=== PATIENT | female | born 2005 | race Caucasian/White ===

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

== ENCOUNTER 2025-07-11 17:13 | Emergency (ER) | payer BC, OTHER ==
[2025-07-11] MEDS: methylPREDNISolone Sodium Succinate 125 MG/2 ML SDV IVPUSH ONE (18:44)
[2025-07-11 18:53] LABS: BASOPHILS ABSOLUTE AUTO 0.1 K/mm3 (0.0-0.3); BASOPHILS PERCENT AUTO 0.6 % (0.0-1.0); EOSINOPHILS ABSOLUTE AUTO 0.4 K/mm3 (0.0-0.7); EOSINOPHILS PERCENT AUTO 3.4 % (0.0-5.0); IMMATURE GRAN ABSOLUTE AUTO 0.03 K/mm3 (0.00-0.05); IMMATURE GRAN PERCENT AUTO 0.3 % (0.0-0.4); LYMPHOCYTES ABSOLUTE AUTO 1.7 K/mm3 (2.0-8.8); LYMPHOCYTES PERCENT AUTO 16.7 % (50.0-65.0); MEAN PLATELET VOLUME 10.3 fl (9.4-12.3); MONOCYTES ABSOLUTE AUTO 0.8 K/mm3 (0.1-1.4); MONOCYTES PERCENT AUTO 7.4 % (2.0-10.0); NEUTROPHILS ABSOLUTE AUTO 7.5 K/mm3 (1.5-8.5); NEUTROPHILS PERCENT AUTO 71.6 % (35.0-45.0); NRBC ABSOLUTE 0.00 (0.00-0.03); NRBC PERCENT 0.0 % (0.0-0.2); PLATELET COUNT,PLT 259 K/mm3 (150-400); RED BLOOD CELL COUNT 5.84 M/mm3 (4.10-5.30); WHITE BLOOD CELL COUNT,WBC 10.44 K/mm3 (4.5-13.5)
[2025-07-11 19:12] LABS: A/G RATIO 1.0 (1-2); ALANINE AMINOTRANSFERASE,ALT 19.0 U/L (14-59); ASPARTATE AMNIOTRANSFERASE,AST 14.0 U/L (15-37); BILIRUBIN TOTAL 0.7 mg/dL (0.2-1.0); BLOOD UREA NITROGEN,BUN 8.0 mg/dL (7-18); CARBON DIOXIDE,CO2 27.0 mEq/L (21-32); CHLORIDE,CL 104.0 mEq/L (98-107); CREATININE 1.1 mg/dL (0.55-1.02); EST CRCL DRUG DOSING (CG) 77.01 mL/min; ESTIMATED GFR 74.0 mL/min (>60); GLUCOSE RANDOM 92.0 mg/dL (70-99); POTASSIUM,K 4.1 mEq/L (3.5-5.1); PROTEIN TOTAL,TP 8.5 g/dl (6.4-8.2); SODIUM,NA 142.0 mEq/L (136-145)
[2025-07-11 21:11] LABS: APPEARANCE,URINE CLEAR (Clear); GLUCOSE,URINE NEGATIVE (Negative); OCCULT BLOOD,URINE TRACE-LYSED (Negative)
[2025-07-11] MEDS ORDERED: Sodium Chloride 0.9% 10 ML Syringe FLUSH PRN (22:32)
[2025-07-11] MEDS: Sodium Chloride 0.9% 10 ML Syringe FLUSH PRN (22:52)
[2025-07-11] MEDS: Iopamidol 755 Mg/ML 100 ML Bottle IVPUSH ONE (22:53)
== END 2025-07-12 00:50 | disposition home or self-care (01) ==
LOC: JD.ED 17:13
DX: J45.901 Unspecified asthma with (acute) exacerbation (principal); E86.0 Dehydration; Z86.16 Personal history of COVID-19; Z91.048 Other nonmedicinal substance allergy status; Z79.899 Other long term (current) drug therapy
CPT/HCPCS: 36415; 71045; 71045-26; 71275; 71275-26; 80053; 81001; 83690; 83735; 84484; 84703; 85025; 86140; 87428-QW; 93005; 93010; 94640; 96361; 96365; 96375; 99284; 99285-25; A9270-GY; J2919; J3475; J7030; Q9967

== ENCOUNTER 2025-07-12 10:41 | Inpatient (IN) | payer BC ==
[2025-07-12] MEDS: Albuterol 0.083% 2.5 MG/3 ML Neb Soln NEB STA (11:06)
[2025-07-12] MEDS: LORazepam 2 MG/ML SDV IVPUSH STA (11:29)
[2025-07-12] MEDS: methylPREDNISolone Sodium Succinate 125 MG/2 ML SDV IVPUSH STA (11:29)
[2025-07-12] MEDS: Ondansetron 4 MG/2 ML SDV IVPUSH ONE (11:29)
[2025-07-12] MEDS: Magnesium Sulf/Wat 4 GM/50 mL 4 GM in Premix Bag 1 BAG IV ONE (11:30)
[2025-07-12 12:21] LABS: BUPRENORPHINE SCREEN,URINE NEGATIVE (CUTOFF=10); METHADONE SCREEN, URINE NEGATIVE (CUTOFF=200); METHAMPHETAMINES SCREEN, URINE NEGATIVE (CUTOFF=500); OXYCODONE SCREEN,URINE NEGATIVE (CUT0FF=100); THC SCREEN,URINE 20 NG/ML NEGATIVE (CUTOFF=50)
[2025-07-12 12:24] LABS: AMPHETAMINES SCREEN, URINE NEGATIVE (CUTOFF=500)
[2025-07-12 12:30] LABS: BASOPHILS ABSOLUTE AUTO 0.0 K/mm3 (0.0-0.3); BASOPHILS PERCENT AUTO 0.1 % (0.0-1.0); EOSINOPHILS ABSOLUTE AUTO 0.0 K/mm3 (0.0-0.7); EOSINOPHILS PERCENT AUTO 0.1 % (0.0-5.0); IMMATURE GRAN ABSOLUTE AUTO 0.05 K/mm3 (0.00-0.05); IMMATURE GRAN PERCENT AUTO 0.4 % (0.0-0.4); LYMPHOCYTES ABSOLUTE AUTO 1.3 K/mm3 (2.0-8.8); LYMPHOCYTES PERCENT AUTO 9.7 % (50.0-65.0); MEAN PLATELET VOLUME 10.1 fl (9.4-12.3); MONOCYTES ABSOLUTE AUTO 1.2 K/mm3 (0.1-1.4); MONOCYTES PERCENT AUTO 9.1 % (2.0-10.0); NEUTROPHILS ABSOLUTE AUTO 10.9 K/mm3 (1.5-8.5); NEUTROPHILS PERCENT AUTO 80.6 % (35.0-45.0); NRBC ABSOLUTE 0.00 (0.00-0.03); NRBC PERCENT 0.0 % (0.0-0.2); PLATELET COUNT,PLT 222 K/mm3 (150-400); RED BLOOD CELL COUNT 4.77 M/mm3 (4.10-5.30); WHITE BLOOD CELL COUNT,WBC 13.56 K/mm3 (4.5-13.5)
[2025-07-12 12:52] LABS: A/G RATIO 1.1 (1-2); ALANINE AMINOTRANSFERASE,ALT 17 U/L (14-59); ASPARTATE AMNIOTRANSFERASE,AST 12 U/L (15-37); BILIRUBIN TOTAL 0.3 mg/dL (0.2-1.0); BLOOD UREA NITROGEN,BUN 8 mg/dL (7-18); CARBON DIOXIDE,CO2 23 mEq/L (21-32); CHLORIDE,CL 109 mEq/L (98-107); CREATINE KINASE,CK 69 U/L (26-192); CREATININE 0.8 mg/dL (0.55-1.02); ESTIMATED GFR 109 mL/min (>60); GLUCOSE RANDOM 121 mg/dL (70-99); POTASSIUM,K 3.0 mEq/L (3.5-5.1); PROTEIN TOTAL,TP 7.2 g/dl (6.4-8.2); SODIUM,NA 143 mEq/L (136-145)
[2025-07-12] MEDS: Potassium Chloride 20 MEQ Tab.ER PO ONE (20:37)
[2025-07-12 20:48] LABS: CORONAVIRUS COVID-19 NAA NEGATIVE (NEGATIVE); INFLUENZA A NAA NEGATIVE (NEGATIVE); RESPIRATORY SYNCYTIAL VIR NAA NEGATIVE (NEGATIVE)
[2025-07-12] MEDS: cefTRIAXone 1 GM in Water For Injection, Sterile 10 ML IVPUSH SCH (22:12)
[2025-07-12] MEDS: Ondansetron 4 MG/2 ML SDV IVPUSH PRN (22:49)
[2025-07-13 04:47] LABS: BASOPHILS ABSOLUTE AUTO 0.0 K/mm3 (0.0-0.3); BASOPHILS PERCENT AUTO 0.1 % (0.0-1.0); EOSINOPHILS ABSOLUTE AUTO 0.0 K/mm3 (0.0-0.7); EOSINOPHILS PERCENT AUTO 0.0 % (0.0-5.0); IMMATURE GRAN ABSOLUTE AUTO 0.10 K/mm3 (0.00-0.05); IMMATURE GRAN PERCENT AUTO 0.7 % (0.0-0.4); LYMPHOCYTES ABSOLUTE AUTO 1.3 K/mm3 (2.0-8.8); LYMPHOCYTES PERCENT AUTO 8.4 % (50.0-65.0); MEAN PLATELET VOLUME 10.6 fl (9.4-12.3); MONOCYTES ABSOLUTE AUTO 1.3 K/mm3 (0.1-1.4); MONOCYTES PERCENT AUTO 8.4 % (2.0-10.0); NEUTROPHILS ABSOLUTE AUTO 12.3 K/mm3 (1.5-8.5); NEUTROPHILS PERCENT AUTO 82.4 % (35.0-45.0); NRBC ABSOLUTE 0.00 (0.00-0.03); NRBC PERCENT 0.0 % (0.0-0.2); PLATELET COUNT,PLT 238 K/mm3 (150-400); RED BLOOD CELL COUNT 4.69 M/mm3 (4.10-5.30); WHITE BLOOD CELL COUNT,WBC 14.96 K/mm3 (4.5-13.5)
[2025-07-13 05:13] LABS: BLOOD UREA NITROGEN,BUN 8.0 mg/dL (7-18); CARBON DIOXIDE,CO2 26.0 mEq/L (21-32); CHLORIDE,CL 110.0 mEq/L (98-107); CREATININE 0.7 mg/dL (0.55-1.02); EST CRCL DRUG DOSING (CG) 121.01 mL/min; ESTIMATED GFR 128.0 mL/min (>60); GLUCOSE RANDOM 119.0 mg/dL (70-99); SODIUM,NA 144.0 mEq/L (136-145)
[2025-07-13 05:25] LABS: POTASSIUM,K 4.7 mEq/L (3.5-5.1)
[2025-07-13] MEDS: methylPREDNISolone Sodium Succinate 40 MG/1 ML SDV IVPUSH SCH (08:36)
[2025-07-13] MEDS ORDERED: Formoterol/Mometasone 100-5 MCG 8.8 GM Inhaler INH SCH (21:00)
[2025-07-13] MEDS: Formoterol/Mometasone 100-5 MCG 8.8 GM Inhaler INH SCH (21:26)
[2025-07-14 04:32] LABS: BASOPHILS ABSOLUTE AUTO 0.0 K/mm3 (0.0-0.3); BASOPHILS PERCENT AUTO 0.1 % (0.0-1.0); EOSINOPHILS ABSOLUTE AUTO 0.0 K/mm3 (0.0-0.7); EOSINOPHILS PERCENT AUTO 0.0 % (0.0-5.0); IMMATURE GRAN ABSOLUTE AUTO 0.07 K/mm3 (0.00-0.05); IMMATURE GRAN PERCENT AUTO 0.6 % (0.0-0.4); LYMPHOCYTES ABSOLUTE AUTO 1.1 K/mm3 (2.0-8.8); LYMPHOCYTES PERCENT AUTO 9.7 % (50.0-65.0); MEAN PLATELET VOLUME 10.3 fl (9.4-12.3); MONOCYTES ABSOLUTE AUTO 0.3 K/mm3 (0.1-1.4); MONOCYTES PERCENT AUTO 2.2 % (2.0-10.0); NEUTROPHILS ABSOLUTE AUTO 9.9 K/mm3 (1.5-8.5); NEUTROPHILS PERCENT AUTO 87.4 % (35.0-45.0); NRBC ABSOLUTE 0.00 (0.00-0.03); NRBC PERCENT 0.0 % (0.0-0.2); PLATELET COUNT,PLT 222 K/mm3 (150-400); RED BLOOD CELL COUNT 4.75 M/mm3 (4.10-5.30); WHITE BLOOD CELL COUNT,WBC 11.33 K/mm3 (4.5-13.5)
[2025-07-14 04:45] LABS: BLOOD UREA NITROGEN,BUN 10.0 mg/dL (7-18); CARBON DIOXIDE,CO2 26.0 mEq/L (21-32); CHLORIDE,CL 110.0 mEq/L (98-107); CREATININE 0.7 mg/dL (0.55-1.02); EST CRCL DRUG DOSING (CG) 121.01 mL/min; ESTIMATED GFR 128.0 mL/min (>60); GLUCOSE RANDOM 131.0 mg/dL (70-99); POTASSIUM,K 4.4 mEq/L (3.5-5.1); SODIUM,NA 143.0 mEq/L (136-145)
== END 2025-07-15 12:15 | disposition home or self-care (01) | DRG 141 ==
LOC: JD.ED 10:41 → JD.MS 11:30 → OBSVTOIN 22:45
PROVIDERS: ADMIT Family Medicine; ATTEND Family Medicine
DX: J45.901 Unspecified asthma with (acute) exacerbation (principal); J96.01 Acute respiratory failure with hypoxia; E87.6 Hypokalemia; F17.200 Nicotine dependence, unspecified, uncomplicated; F41.9 Anxiety disorder, unspecified; F32.A Depression, unspecified; Z86.16 Personal history of COVID-19; Z90.49 Acquired absence of other specified parts of digestive tract; Z79.52 Long term (current) use of systemic steroids; Z79.899 Other long term (current) drug therapy; Z98.890 Other specified postprocedural states
CPT/HCPCS: 36415; 80048; 80053; 80306; 82550; 83735; 84703; 85025; 87637; 94640; 94761; 94762; 96374; 96375; 99284; 99285-25; A9270-GY; J0456; J0696; J2060; J2405; J2919; J3475; J7030; J7050

== ENCOUNTER 2025-08-04 11:05 | Emergency (ER) | payer BC, MEDICAID ==
[2025-08-04 11:30] LABS: BASOPHILS ABSOLUTE AUTO 0.1 K/mm3 (0.0-0.3); BASOPHILS PERCENT AUTO 0.6 % (0.0-1.0); EOSINOPHILS ABSOLUTE AUTO 0.6 K/mm3 (0.0-0.7); EOSINOPHILS PERCENT AUTO 6.3 % (0.0-5.0); IMMATURE GRAN ABSOLUTE AUTO 0.02 K/mm3 (0.00-0.05); IMMATURE GRAN PERCENT AUTO 0.2 % (0.0-0.4); LYMPHOCYTES ABSOLUTE AUTO 2.7 K/mm3 (2.0-8.8); LYMPHOCYTES PERCENT AUTO 30.3 % (50.0-65.0); MEAN PLATELET VOLUME 10.2 fl (9.4-12.3); MONOCYTES ABSOLUTE AUTO 0.7 K/mm3 (0.1-1.4); MONOCYTES PERCENT AUTO 8.0 % (2.0-10.0); NEUTROPHILS ABSOLUTE AUTO 4.9 K/mm3 (1.5-8.5); NEUTROPHILS PERCENT AUTO 54.6 % (35.0-45.0); NRBC ABSOLUTE 0.00 (0.00-0.03); NRBC PERCENT 0.0 % (0.0-0.2); PLATELET COUNT,PLT 280 K/mm3 (150-400); RED BLOOD CELL COUNT 5.65 M/mm3 (4.10-5.30); WHITE BLOOD CELL COUNT,WBC 8.98 K/mm3 (4.5-13.5)
[2025-08-04] MEDS: methylPREDNISolone Sodium Succinate 125 MG/2 ML SDV IVPUSH ONE (11:33)
[2025-08-04] MEDS: LORazepam 2 MG/ML SDV IVPUSH STA (11:33)
[2025-08-04 11:49] LABS: A/G RATIO 1.0 (1-2); ALANINE AMINOTRANSFERASE,ALT 21.0 U/L (14-59); ASPARTATE AMNIOTRANSFERASE,AST 14.0 U/L (15-37); BILIRUBIN TOTAL 0.5 mg/dL (0.2-1.0); BLOOD UREA NITROGEN,BUN 7.0 mg/dL (7-18); CARBON DIOXIDE,CO2 25.0 mEq/L (21-32); CHLORIDE,CL 104.0 mEq/L (98-107); CREATINE KINASE,CK 57.0 U/L (26-192); CREATININE 0.9 mg/dL (0.55-1.02); EST CRCL DRUG DOSING (CG) 94.12 mL/min; ESTIMATED GFR 94.0 mL/min (>60); GLUCOSE RANDOM 68.0 mg/dL (70-99); POTASSIUM,K 3.4 mEq/L (3.5-5.1); PROTEIN TOTAL,TP 8.3 g/dl (6.4-8.2); SODIUM,NA 142.0 mEq/L (136-145)
[2025-08-04] MEDS: Iopamidol 755 Mg/ML 100 ML Bottle IVPUSH ONE (12:35)
[2025-08-04] MEDS: Sodium Chloride 0.9% 10 ML Syringe FLUSH ONE (12:36)
[2025-08-04 13:01] LABS: BUPRENORPHINE SCREEN,URINE NEGATIVE (CUTOFF=10); METHADONE SCREEN, URINE NEGATIVE (CUTOFF=200); METHAMPHETAMINES SCREEN, URINE NEGATIVE (CUTOFF=500); OXYCODONE SCREEN,URINE NEGATIVE (CUT0FF=100); THC SCREEN,URINE 20 NG/ML NEGATIVE (CUTOFF=50)
[2025-08-04 13:04] LABS: AMPHETAMINES SCREEN, URINE NEGATIVE (CUTOFF=500)
== END 2025-08-04 13:45 | disposition home or self-care (01) ==
LOC: JD.ED 11:05
DX: J45.901 Unspecified asthma with (acute) exacerbation (principal); Z86.16 Personal history of COVID-19; Z79.899 Other long term (current) drug therapy; Z88.1 Allergy status to other antibiotic agents; Z91.048 Other nonmedicinal substance allergy status
CPT/HCPCS: 36415; 71045; 71275; 80053; 80306; 82550; 83735; 84703; 85025; 87428; 93005; 94640; 96361; 96374; 96375; 99285; A9270; J2060; J2919; J7030; J7512; J7620; Q9967; 93010; 99284